=== PATIENT | female | born 1955 | race Caucasian/White ===

== ENCOUNTER 2022-08-04 11:12 | Outpatient (REF) | payer MEDICARE, MEDICAID, SELFPAY ==
--- NOTE | ~2022-08-04 | XR_ITS ---
EXAMINATION: Bilateral hand x-ray CLINICAL INFORMATION: Pain COMPARISON: None. TECHNIQUE: 3 views each hand FINDINGS: Right: There is orthopedic hardware seen in the right distal ulnar shaft. Bone alignment is normal. No acute fracture or dislocation. Normal joint spaces. Normal soft tissues. Left: Bone alignment is normal. No fracture or dislocation. Normal joint spaces. Normal soft tissues. XR/XR hand LT min 3V IMPRESSION: Orthopedic hardware in the distal ulnar shaft. Otherwise unremarkable exam.
--- NOTE | ~2022-08-04 | XR_ITS ---
EXAMINATION: Bilateral hand x-ray CLINICAL INFORMATION: Pain COMPARISON: None. TECHNIQUE: 3 views each hand FINDINGS: Right: There is orthopedic hardware seen in the right distal ulnar shaft. Bone alignment is normal. No acute fracture or dislocation. Normal joint spaces. Normal soft tissues. Left: Bone alignment is normal. No fracture or dislocation. Normal joint spaces. Normal soft tissues. XR/XR hand RT min 3V IMPRESSION: Orthopedic hardware in the distal ulnar shaft. Otherwise unremarkable exam.
--- NOTE | ~2022-08-04 | XR_ITS ---
EXAMINATION: I lateral hip x-ray CLINICAL INFORMATION: Pain COMPARISON: None. TECHNIQUE: 2 views of each hip FINDINGS: Right: Bone alignment is normal. No fracture or dislocation. The joint space is normal. There are small soft tissue calcifications or ossifications adjacent to the greater and lesser trochanters, inferior pubic symphysis and lateral to the right hip joint. Left: Bone alignment is normal. No fracture or dislocation. Left hip joint is normal. Soft tissues calcification or ossification adjacent to the superior lateral hip joint. XR/XR hip RT min 2V IMPRESSION: No fracture or evidence of arthritis. Soft tissue calcifications, right greater than left.
--- NOTE | ~2022-08-04 | XR_ITS ---
EXAMINATION: XR CLAVICLE, RIGHT CLINICAL INFORMATION: Proximal swelling. COMPARISON: None available. TECHNIQUE: 2 of the right clavicle. FINDINGS: There are postsurgical changes to the right distal clavicle and adjacent soft tissue calcifications. No acute fracture or dislocation. Small soft tissue calcification adjacent to the greater tuberosity. Postsurgical changes of the visualized lower cervical spine. Old right third rib fracture. XR/XR clavicle RT IMPRESSION: Postsurgical changes to the right distal clavicle.
--- NOTE | ~2022-08-04 | XR_ITS ---
EXAMINATION: I lateral hip x-ray CLINICAL INFORMATION: Pain COMPARISON: None. TECHNIQUE: 2 views of each hip FINDINGS: Right: Bone alignment is normal. No fracture or dislocation. The joint space is normal. There are small soft tissue calcifications or ossifications adjacent to the greater and lesser trochanters, inferior pubic symphysis and lateral to the right hip joint. Left: Bone alignment is normal. No fracture or dislocation. Left hip joint is normal. Soft tissues calcification or ossification adjacent to the superior lateral hip joint. XR/XR hip LT min 2V IMPRESSION: No fracture or evidence of arthritis. Soft tissue calcifications, right greater than left.
[2022-08-04 12:44] LABS: MANUAL DIFF FLAG NO
[2022-08-04 13:20] LABS: Basophils Absolute Auto 0.1 X10*3/uL (0.0-0.2); Eosinophils Absolute Auto 0.1 X10*3/uL (0.0-0.4); Eosinophils Percent Auto 1.2 % (0-4); Hematocrit 41.6 % (37.0-47.0); Hemoglobin 13.2 g/dl (12.0-16.0); Imm Gran Abs Auto 0.04 X10*3/uL (0.00-0.03); Imm Gran Pct Auto 0.7 % (0.0-0.4); Lymphocytes Absolute Auto 1.2 X10*3/uL (1.2-4.9); Lymphocytes Percent Auto 19.3 % (20-40); Mean Corpuscular HGB Conc 31.7 g/dl (31.0-35.0); Mean Corpuscular Hemoglobin 29.1 pg (27.0-33.0); Mean Corpuscular Volume 91.6 fL (80.0-98.0); Monocytes Absolute Auto 0.4 X10*3/uL (0.1-1.2); Monocytes Percent Auto 5.9 % (2-11); Neutrophils Absolute Auto 4.4 x10*3/uL (2.0-8.3); Neutrophils Percent Auto 71.9 % (45-73); Platelet Count 288 X10*3/uL (160-400); Red Blood Count 4.54 X10*6/uL (4.20-5.50); Red Cell Distribution Width 13.1 % (11.0-16.0); White Blood Count 6.1 X10*3/uL (4.8-10.8)
[2022-08-04 14:07] LABS: Erythrocyte Sedimentation Rate 10 MM/HR (0-20)
[2022-08-04 14:19] LABS: C Reactive Protein 0.44 mg/dL (< or = 0.50)
[2022-08-04 14:20] LABS: Creatinine Urine 114.82 mg/dL; Total Protein Urine Random < 7 mg/dL (<12)
[2022-08-05 18:24] LABS: Anti DNA DS Antibody 1 IU/mL; SM/Ribonucleoprotein Ab <1.0 NEG AI (<1.0 NEG); Smith Protein <1.0 NEG AI (<1.0 NEG)
== END 2022-08-04 11:13 | disposition home or self-care (01) ==
LOC: HO.XRAY 11:12
PROVIDERS: Visit Provider Internal Medicine Rheumatology
DX: M89.319 Hypertrophy of bone, unspecified shoulder (principal); R76.8 Other specified abnormal immunological findings in serum; M79.641 Pain in right hand; M79.642 Pain in left hand; M25.551 Pain in right hip; M25.552 Pain in left hip
CPT/HCPCS: 36415; 73000; 73130; 73502; 84156; 85025; 85652; 86140; 86225; 86235; 99202